=== PATIENT | male | born 1945 ===

== ENCOUNTER → 2022-04-30 17:01 | Outpatient (CLI) | payer MEDICARE, SELFPAY ==
[2022-04-30 18:28] LABS: Basophils % 0.2 % (0.1-2.0); Eosinophils # 0.1 K/mm3 (0.0-0.4); Eosinophils % 1.6 % (0.1-12.0); Hematocrit 33.5 % (42.0-52.0); Hemoglobin 11.1 g/dL (14.1-18.0); Lymphocytes # 1.3 K/mm3 (0.7-4.5); Lymphocytes % 24.2 % (10-50); Mean Corpuscular Hemoglobin 28.6 pg (27.0-31.2); Mean Corpuscular Volume 86.5 fl (80-94); Mean Platelet Volume 7.1 fl (7.4-10.4); Monocytes # 0.4 K/mm3 (0.1-1.0); Monocytes % 7.9 % (1.7-9.3); Neutrophils # 3.5 K/mm3 (1.8-7.8); Platelet Count 249 K/mm3 (142-424); Red Blood Count 3.88 M/mm3 (4.60-6.20); Red Cell Distribution Width 14.2 % (11.5-17.5); White Blood Count 5.4 K/mm3 (4.8-10.8)
[2022-04-30 19:19] LABS: Erythrocyte Sedimentation Rate 18 mm/hr (0-20)
[2022-04-30 19:50] LABS: Alanine Aminotransferase 29 U/L (12-78); Albumin Level 2.8 g/dl (3.5-5.0); Albumin/Globulin Ratio 1.2 (1.1-1.8); Alkaline Phosphatase 86 U/L (38-126); Anion Gap 6.7 mEq/L (5-15); Aspartate Amino Transferase 35 U/L (17-59); Blood Urea Nitrogen 13 mg/dl (9-20); Calcium 8.4 mg/dl (8.4-10.2); Carbon Dioxide 30 mmol/L (22.0-30.0); Chloride 104 mmol/L (98-107); Estimated Glomerular Filt Rate 130 ml/min (>60); GFR (African American) 157 ML/MIN (>60); Globulin 2.3 g/dL (1.3-3.2); Glucose 122 mg/dl (74-100); Potassium 4.7 mmoL/L (3.5-5.1); Sodium 136 mmol/L (136-145); Total Protein,Serum 5.1 g/dl (6.3-8.2)
[2022-04-30 19:56] LABS: C-Reactive Protein 7.5 mg/L (0-4)
[2022-04-30 20:06] LABS: Bilirubin,Total < 0.1 mg/dl (0.2-1.3)
== END ==
PROVIDERS: PCP Internal Medicine Infectious Disease; Visit Provider Internal Medicine Infectious Disease
DX: Z51.81 Encounter for therapeutic drug level monitoring (principal); Z79.2 Long term (current) use of antibiotics
CPT/HCPCS: 80053; 85025; 85651; 86140

== ENCOUNTER → 2022-05-07 17:48 | Outpatient (CLI) | payer MEDICARE, SELFPAY ==
[2022-05-07 18:34] LABS: Basophils % 0.4 % (0.1-2.0); Eosinophils # 0.1 K/mm3 (0.0-0.4); Eosinophils % 1.5 % (0.1-12.0); Hematocrit 38.2 % (42.0-52.0); Hemoglobin 12.1 g/dL (14.1-18.0); Lymphocytes # 1.4 K/mm3 (0.7-4.5); Lymphocytes % 25.8 % (10-50); Mean Corpuscular HGB Conc 31.7 g/dL (31.8-35.4); Mean Corpuscular Hemoglobin 29.1 pg (27.0-31.2); Mean Corpuscular Volume 91.7 fl (80-94); Mean Platelet Volume 7.8 fl (7.4-10.4); Monocytes # 0.4 K/mm3 (0.1-1.0); Monocytes % 7.3 % (1.7-9.3); Neutrophils # 3.5 K/mm3 (1.8-7.8); Neutrophils % 64.9 % (37.0-80.0); Platelet Count 382 K/mm3 (142-424); Red Blood Count 4.16 M/mm3 (4.60-6.20); Red Cell Distribution Width 15.4 % (11.5-17.5); White Blood Count 5.4 K/mm3 (4.8-10.8)
[2022-05-07 18:58] LABS: Alanine Aminotransferase 24 U/L (12-78); Albumin Level 2.9 g/dl (3.5-5.0); Albumin/Globulin Ratio 1.3 (1.1-1.8); Alkaline Phosphatase 81 U/L (38-126); Anion Gap 7.5 mEq/L (5-15); Aspartate Amino Transferase 30 U/L (17-59); Blood Urea Nitrogen 18 mg/dl (9-20); Calcium 8.5 mg/dl (8.4-10.2); Carbon Dioxide 30 mmol/L (22.0-30.0); Chloride 101 mmol/L (98-107); Estimated Glomerular Filt Rate 109 ml/min (>60); GFR (African American) 132 ML/MIN (>60); Globulin 2.3 g/dL (1.3-3.2); Glucose 195 mg/dl (74-100); Potassium 4.5 mmoL/L (3.5-5.1); Sodium 134 mmol/L (136-145); Total Protein,Serum 5.2 g/dl (6.3-8.2)
[2022-05-07 19:03] LABS: Bilirubin,Total < 0.1 mg/dl (0.2-1.3)
[2022-05-07 19:04] LABS: C-Reactive Protein 1.7 mg/L (0-4)
[2022-05-07 19:53] LABS: Erythrocyte Sedimentation Rate 12 mm/hr (0-20)
== END ==
PROVIDERS: PCP Internal Medicine Infectious Disease; Visit Provider Internal Medicine Infectious Disease
DX: Z51.81 Encounter for therapeutic drug level monitoring (principal); Z79.2 Long term (current) use of antibiotics
CPT/HCPCS: 80053; 85025; 85651; 86140

== ENCOUNTER → 2022-05-14 15:33 | Outpatient (CLI) | payer MEDICARE, SELFPAY ==
[2022-05-14 18:05] LABS: Basophils % 0.7 % (0.1-2.0); Eosinophils # 0.1 K/mm3 (0.0-0.4); Eosinophils % 2.2 % (0.1-12.0); Hematocrit 39.1 % (42.0-52.0); Hemoglobin 12.4 g/dL (14.1-18.0); Lymphocytes # 1.2 K/mm3 (0.7-4.5); Mean Corpuscular HGB Conc 31.7 g/dL (31.8-35.4); Mean Corpuscular Hemoglobin 29.8 pg (27.0-31.2); Mean Platelet Volume 7.8 fl (7.4-10.4); Monocytes # 0.3 K/mm3 (0.1-1.0); Monocytes % 7.8 % (1.7-9.3); Neutrophils # 2.1 K/mm3 (1.8-7.8); Neutrophils % 57.4 % (37.0-80.0); Platelet Count 316 K/mm3 (142-424); Red Blood Count 4.16 M/mm3 (4.60-6.20); Red Cell Distribution Width 15.7 % (11.5-17.5); White Blood Count 3.7 K/mm3 (4.8-10.8)
[2022-05-14 18:10] LABS: Erythrocyte Sedimentation Rate 7 mm/hr (0-20)
[2022-05-14 19:31] LABS: Alanine Aminotransferase 23 U/L (12-78); Albumin Level 2.8 g/dl (3.5-5.0); Albumin/Globulin Ratio 1.3 (1.1-1.8); Alkaline Phosphatase 75 U/L (38-126); Anion Gap 7.8 mEq/L (5-15); Aspartate Amino Transferase 30 U/L (17-59); Blood Urea Nitrogen 21 mg/dl (9-20); Calcium 8.1 mg/dl (8.4-10.2); Carbon Dioxide 28 mmol/L (22.0-30.0); Chloride 98 mmol/L (98-107); Estimated Glomerular Filt Rate 109 ml/min (>60); GFR (African American) 132 ML/MIN (>60); Globulin 2.2 g/dL (1.3-3.2); Glucose 325 mg/dl (74-100); Potassium 4.8 mmoL/L (3.5-5.1); Sodium 129 mmol/L (136-145)
[2022-05-14 19:36] LABS: C-Reactive Protein 0.7 mg/L (0-4)
[2022-05-14 19:48] LABS: Bilirubin,Total < 0.1 mg/dl (0.2-1.3)
== END ==
PROVIDERS: PCP Internal Medicine Infectious Disease; Visit Provider Internal Medicine Infectious Disease
DX: Z51.81 Encounter for therapeutic drug level monitoring (principal); Z79.2 Long term (current) use of antibiotics
CPT/HCPCS: 80053; 85025; 85651; 86140

== ENCOUNTER → 2022-05-21 17:53 | Outpatient (CLI) | payer MEDICARE, SELFPAY ==
[2022-05-21 18:55] LABS: Basophils % 0.5 % (0.1-2.0); Eosinophils # 0.1 K/mm3 (0.0-0.4); Eosinophils % 1.1 % (0.1-12.0); Hematocrit 41.4 % (42.0-52.0); Hemoglobin 12.7 g/dL (14.1-18.0); Lymphocytes # 1.3 K/mm3 (0.7-4.5); Lymphocytes % 30.2 % (10-50); Mean Corpuscular HGB Conc 30.8 g/dL (31.8-35.4); Mean Corpuscular Hemoglobin 29.1 pg (27.0-31.2); Mean Corpuscular Volume 94.5 fl (80-94); Mean Platelet Volume 7.9 fl (7.4-10.4); Monocytes # 0.3 K/mm3 (0.1-1.0); Monocytes % 7.3 % (1.7-9.3); Neutrophils # 2.7 K/mm3 (1.8-7.8); Neutrophils % 60.9 % (37.0-80.0); Platelet Count 235 K/mm3 (142-424); Red Blood Count 4.38 M/mm3 (4.60-6.20); Red Cell Distribution Width 15.7 % (11.5-17.5); White Blood Count 4.4 K/mm3 (4.8-10.8)
[2022-05-21 19:01] LABS: Chloride 100 mmol/L (98-107); Potassium 4.3 mmoL/L (3.5-5.1); Sodium 132 mmol/L (136-145)
[2022-05-21 19:03] LABS: Blood Urea Nitrogen 26 mg/dl (9-20); Estimated Glomerular Filt Rate 109 ml/min (>60); GFR (African American) 132 ML/MIN (>60)
[2022-05-21 19:04] LABS: Alanine Aminotransferase 27 U/L (12-78); Albumin Level 3.1 g/dl (3.5-5.0); Albumin/Globulin Ratio 1.4 (1.1-1.8); Alkaline Phosphatase 74 U/L (38-126); Anion Gap 6.3 mEq/L (5-15); Aspartate Amino Transferase 32 U/L (17-59); Calcium 8.4 mg/dl (8.4-10.2); Carbon Dioxide 30 mmol/L (22.0-30.0); Globulin 2.2 g/dL (1.3-3.2); Glucose 285 mg/dl (74-100); Total Protein,Serum 5.3 g/dl (6.3-8.2)
[2022-05-21 19:05] LABS: Bilirubin,Total < 0.1 mg/dl (0.2-1.3)
[2022-05-21 19:10] LABS: C-Reactive Protein 1.3 mg/L (0-4)
[2022-05-21 19:25] LABS: Erythrocyte Sedimentation Rate 8 mm/hr (0-20)
== END ==
PROVIDERS: PCP Internal Medicine Infectious Disease; Visit Provider Internal Medicine Infectious Disease
DX: Z51.81 Encounter for therapeutic drug level monitoring (principal); Z79.2 Long term (current) use of antibiotics
CPT/HCPCS: 80053; 85025; 85651; 86140